=== PATIENT | male | born 1990 | race Caucasian/White ===

== ENCOUNTER 2018-06-23 16:09 | Emergency (ER) | payer OTHER ==
[2018-06-23] MEDS ORDERED: Sodium Chloride 0.9% 1,000 ML IV ONE (17:07)
--- NOTE | 2018-06-23 17:33 | C.PDOC ---
History Of Present Illness <Leo Joseph - Last Filed: 06/25/18 18:31> <EscaleraCorrie winston - Last Filed: 06/27/18 14:18> The patient is a 27 year old male, with no significant past medical history, who recently returned from [facility] around ten days ago. Patient presents to the ED for evaluation of fever, which began while he was on the plane. Patient notes symptoms were initially associated with sore throat, which persists. He also reports intermittent vomiting which began two days later. The vomitus is non-bloody/non-bilious and is not associated with eating. Otherwise, patient is able to tolerate food and fluids. He denies rash, cough, runny nose, swelling, abdominal pain, diarrhea or sick contacts. Patient does not have a regular PMD. Patient denies history of chronic illnesses or any significant family history. He admits to socially drinking, but denies smoking or drug use. (Corrie Escalera) <Leo Joseph - Last Filed: 06/25/18 18:31> History Per: Patient History/Exam Limitations: no limitations Onset/Duration Of Symptoms: Days Current Symptoms Are (Timing): Still Present Location Of Pain: Throat Sick Contacts (Context): None Associated Symptoms: Fever, Vomiting. denies: Cough, Diarrhea Additional History Per: Patient <EscaleraCorrie - Last Filed: 06/27/18 14:18> Time Seen by Provider: 06/23/18 16:56 Chief Complaint (Nursing): Flu-like Symptoms Past Medical History Reviewed: Historical Data, Nursing Documentation, Vital Signs - Medical History PMH: No Chronic Diseases Surgical History: Appendectomy Family History: States: Unknown Family Hx - Social History Hx Tobacco Use: No Hx Alcohol Use: Yes Hx Substance Use: No - Immunization History Hx Tetanus Toxoid Vaccination: No Hx Influenza Vaccination: No Hx Pneumococcal Vaccination: No <JwCorrie - Last Filed: 06/27/18 14:18> Vital Signs: Last Vital Signs Temp 98.6 F 06/23/18 20:42 Pulse 70 06/23/18 20:42 Resp 18 06/23/18 20:42 BP 115/70 06/23/18 20:42 Pulse Ox 98 06/23/18 20:42 Review Of Systems Constitutional: Positive for: Fever ENT: Negative for: Nose Discharge Respiratory: Negative for: Cough Gastrointestinal: Positive for: Vomiting. Negative for: Abdominal Pain, Diarrhea Skin: Negative for: Rash <Corrie Escalera Addy Last Filed: 06/27/18 14:18> Physical Exam - Physical Exam Appears: Non-toxic, No Acute Distress Skin: Warm, Dry Head: Atraumatic, Normacephalic Eye(s): bilateral: PERRL, EOMI Nose: No Flaring, No Discharge Oral Mucosa: Moist Throat: Erythema, No Exudate (tonsillar), No Other (tonsillar edema or hypertrophy) Neck: Trachea Midline Lymphatic: No Adenopathy Chest: Symmetrical, No Tenderness Cardiovascular: Rhythm Regular, No Murmur, Other (tachycardic) Respiratory: Normal Breath Sounds, No Accessory Muscle Use, No Rales, No Rhonchi , No Wheezing Gastrointestinal/Abdominal: Soft, No Tenderness, No Distention Back: Normal Inspection, No CVA Tenderness, No Decreased ROM Extremity: Normal ROM, No Deformity Neurological/Psych: Oriented x3, Normal Motor, Normal Sensation <Corrie Escalera Pamela - Last Filed: 06/27/18 14:18> ED Course And Treatment - Laboratory Results Result Diagrams: 06/23/18 17:33 06/23/18 17:33 <Leo Joseph - Last Filed: 06/25/18 18:31> - Laboratory Results Result Diagrams: 06/23/18 17:33 06/23/18 17:33 O2 Sat by Pulse Oximetry: 97 (on RA ) Pulse Ox Interpretation: Normal <Corrie Escalera - Last Filed: 06/27/18 14:18> Medical Decision Making <Leo Joseph - Last Filed: 06/25/18 18:31> <Corrie Escalera - Last Filed: 06/27/18 14:18> Medical Decision Making: Impression: febrile illness Differential Diagnoses include but are not limited to: * viral syndrome * malaria * urinary tract infection * strep throat * mononucleosis Plan: * bloodwork * urinalysis * CXR * Rapid Strep * Influenza A/B swab * Cottle swab * Toradol IVP * Tylenol PO * IV Fluids * reassess and disposition Progress: All reported labwork available within normal limits. Pt continues to be afebrile and in no acute distress in ER. STable for dc with PMD or [facility] followup. Advised that both urine cultures and blood cultures still pending and results will be followed by ER. (Corrie Escalera) Disposition <Leo Joseph - Last Filed: 06/25/18 18:31> - Disposition Disposition Time: 20:13 <Corrie Escalera - Last Filed: 06/27/18 14:18> - Disposition Referrals: [facility] [Outside] [facility] [Outside] Disposition: HOME/ ROUTINE Condition: STABLE Additional Instructions: STAY WELL HYDRATED FOLLOW UP WITH PMD OR [facility] IN 2-3 DAYS FOR REEVALUATION Instructions: Fever, Adult (DC) - Clinical Impression Clinical Impression: Febrile illness <Leo Joseph - Last Filed: 06/25/18 18:31> - Scribe Statement The provider has reviewed the documentation as recorded by the Scribe (Chiara De Leon) <Corrie Escalera - Last Filed: 06/27/18 14:18> - Scribe Statement Provider Attestation: All medical record entries made by the Scribe were at my direction and personally dictated by me. I have reviewed the chart and agree that the record accurately reflects my personal performance of the history, physical exam, medical decision making, and the department course for this patient. I have also personally directed, reviewed, and agree with the discharge instructions and disposition. (Corrie Escalera) Addendum <Leo Joseph - Last Filed: 06/25/18 18:31> <Corrie Escalera - Last Filed: 06/27/18 14:18> Addendum: 06/25/18 09:02 Received a call from microbiology lab stating gram positive cocci in clusters in 1 blood culture bottle. Called patient and left a voicemail. 06/25/18 18:31 Spoke with patient and explained lab results. Patient advised to return to ER and patient agreed to come back. (Leo Joseph)
[2018-06-23 17:39] LABS: BASO % 0.4 % (0.0-2.0); EOS % 0.1 % (0.0-4.0); LYMPH # 2.2 K/uL (1.0-4.3); LYMPH % 23.9 % (20.0-40.0); MEAN CELL VOLUME 84.3 fL (80.0-94.0); MEAN CORPUSCULAR HEMOGLOBIN 28.8 pg (27.0-31.0); MEAN CORPUSCULAR HGB CONC 34.2 g/dL (33.0-37.0); MEAN PLATELET VOLUME 7.9 fL (7.2-11.7); MONO % 11.1 % (0.0-10.0); NEUT # 6.1 K/uL (1.8-7.0); NEUT % 64.5 % (50.0-75.0); PLATELET COUNT 245 K/uL (130-400); RBC 4.86 Mil/uL (4.40-5.90); WHITE BLOOD COUNT 9.4 K/uL (4.8-10.8)
[2018-06-23 17:47] LABS: INR 1.2; PROTHROMBIN TIME 13.1 SECONDS (9.7-12.2); SQUAMOUS EPITHIAL < 1 /hpf (0-5); URINE BACTERIA RARE (<OCC); URINE BILIRUBIN NEGATIVE (NEGATIVE); URINE BLOOD TRACE (NEGATIVE); URINE CLARITY Clear (Clear); URINE COLOR Yellow (YELLOW); URINE GLUCOSE (UA) NORMAL (Normal); URINE LEUKOCYTE ESTERASE NEG Leu/uL (Negative); URINE PROTEIN NEGATIVE (NEGATIVE); URINE UROBILINOGEN NORMAL mg/dL (0.2-1.0)
[2018-06-23] MEDS ORDERED: Sodium Chloride 0.9% 1,000 ML ONE (17:48)
[2018-06-23 17:59] LABS: ALB/GLOB RATIO 1.5 (1.0-2.1); ALBUMIN 4.4 g/dL (3.5-5.0); ALT/SGPT 289 U/L (21-72); AST/SGOT 117 U/L (17-59); BLOOD UREA NITROGEN 17 mg/dL (9-20); CALCIUM 9.3 mg/dl (8.6-10.4); GFR NON-AFRICAN AMERICAN > 60; INFLUENZA A B NEGATIVE FOR FLU A/B (NEGATIVE); LIPASE 34 U/L (23-300)
--- NOTE | 2018-06-23 18:30 | RAD ---
HISTORY: SOB COMPARISON: None available. TECHNIQUE: Chest PA and lateral FINDINGS: LUNGS: Mild biapical pleural thickening. No focal consolidation. Please note that chest x-ray has limited sensitivity for the detection of pulmonary masses. PLEURA: No significant pleural effusion identified. No definite pneumothorax . CARDIOVASCULAR: The cardiomediastinal silhouette appears within normal limits of size. OSSEOUS STRUCTURES: No acute osseous abnormality identified. VISUALIZED UPPER ABDOMEN: Unremarkable. OTHER FINDINGS: None. IMPRESSION: No acute findings identified. See above.
[2018-06-23 19:19] VITALS: RESP 18
[2018-06-23 19:35] LABS: INTRACELLULAR PARASITE NEGATIVE (NEGATIVE)
[2018-06-23 20:05] LABS: ERYTHROCYTE SEDIMENTATION RATE 7 mm/hr (0-15)
[2018-06-23 20:43] VITALS: BP 115/70; PULSE 70; TEMP 98.6
[2018-06-27 14:14] VITALS: O2SAT 97
== END 2018-06-23 21:19 | disposition home or self-care (01) ==
LOC: C.ER 16:09
DX: R50.9 Fever, unspecified (principal)
CPT/HCPCS: 71046; 80053; 81001; 83605; 83690; 83735; 85025; 85610; 85651; 85730; 86308; 87040; 87070; 87086; 87149; 87181; 87207; 87430; 87804; 96361; 96374; 99284; J1885; J7030

== ENCOUNTER 2018-06-25 19:05 | Observation (INO) | payer OTHER ==
[2018-06-25] MEDS ORDERED: Sodium Chloride 0.9% 1,000 ML IV ONE (20:38)
[2018-06-25 20:55] LABS: VENOUS BLOOD GAS BASE EXCESS 2.9 mmol/L (0.0-2.0); VENOUS BLOOD GAS PCO2 54 mmHg (40-60); VENOUS BLOOD GAS PO2 30 mm/Hg (30-55); VENOUS BLOOD PH 7.35 (7.32-7.43)
[2018-06-25 20:56] LABS: BASO % 0.3 % (0.0-2.0); EOS # 0.1 K/uL (0.0-0.7); EOS % 1.4 % (0.0-4.0); HEMOGLOBIN 15.2 g/dL (12.0-18.0); LYMPH # 3.4 K/uL (1.0-4.3); LYMPH % 48.6 % (20.0-40.0); MEAN CELL VOLUME 85.1 fL (80.0-94.0); MEAN PLATELET VOLUME 8.1 fL (7.2-11.7); MONO # 0.6 K/uL (0.0-0.8); MONO % 8.4 % (0.0-10.0); NEUT # 2.9 K/uL (1.8-7.0); NEUT % 41.3 % (50.0-75.0); NRBC % 0.1 % (0.0-2.0); RBC 5.24 Mil/uL (4.40-5.90); RED CELL DISTRIBUTION WIDTH 12.9 % (11.5-14.5)
[2018-06-25] MEDS ORDERED: Sodium Chloride 0.9% 1,000 ML ONE (20:56)
[2018-06-25 21:15] LABS: ALB/GLOB RATIO 1.4 (1.0-2.1); ALBUMIN 4.6 g/dL (3.5-5.0); ALT/SGPT 464 U/L (21-72); AST/SGOT 219 U/L (17-59); BLOOD UREA NITROGEN 12 mg/dL (9-20); CALCIUM 9.5 mg/dl (8.6-10.4); GFR NON-AFRICAN AMERICAN > 60
[2018-06-25 21:31] LABS: URINE BILIRUBIN NEGATIVE (NEGATIVE); URINE BLOOD NEGATIVE (NEGATIVE); URINE CLARITY Clear (Clear); URINE COLOR Yellow (YELLOW); URINE GLUCOSE (UA) NORMAL (Normal); URINE LEUKOCYTE ESTERASE NEG Leu/uL (Negative); URINE PROTEIN NEGATIVE (NEGATIVE); URINE UROBILINOGEN NORMAL mg/dL (0.2-1.0)
[2018-06-25] MEDS ORDERED: Iodixanol 320 mg/ml 150 ml Bottle IV ONE (21:31)
[2018-06-25] MEDS ORDERED: metroNIDAZOLE IV 500 mg/100 ml 500 MG/100 ML BAG IVPB STA (23:35)
[2018-06-25] MEDS ORDERED: Ciprofloxacin 400mg/200ml D5W 400 MG/200 ML BAG IVPB STA (23:35)
[2018-06-25] MEDS ORDERED: Ciprofloxacin 400mg/200ml D5W 400 MG/200 ML BAG IVPB ONE (23:42)
[2018-06-25] MEDS ORDERED: metroNIDAZOLE IV 500 mg/100 ml 500 MG/100 ML BAG ONE (23:42)
--- NOTE | 2018-06-25 23:43 | C.PDOC ---
History Of Present Illness 27 year old male presents to the ED complaining of diarrhea and vomiting since last night. Patient was called to the ER for positive blood culture test. He denies any fever, hematuria, or dysuria but admits to decreased appetite. He states he came back from [facility] a few weeks ago and notes he was not ill during his trip or in the plane. Time Seen by Provider: 06/25/18 20:56 Chief Complaint (Nursing): Medical Clearance History Per: Patient History/Exam Limitations: no limitations Onset/Duration Of Symptoms: Days Current Symptoms Are (Timing): Still Present Severity: Moderate Recent travel outside of the [place] States: Yes ([facility]) Past Medical History Reviewed: Historical Data, Nursing Documentation, Vital Signs Vital Signs: Last Vital Signs Temp 98.2 F 06/25/18 19:20 Pulse 77 06/25/18 22:24 Resp 14 06/25/18 22:24 BP 126/71 06/25/18 22:24 Pulse Ox 100 06/25/18 23:46 - Medical History PMH: No Chronic Diseases Surgical History: Appendectomy Family History: States: No Known Family Hx - Social History Hx Tobacco Use: No Hx Alcohol Use: Yes Hx Substance Use: No - Immunization History Hx Tetanus Toxoid Vaccination: Yes Hx Influenza Vaccination: No Hx Pneumococcal Vaccination: No Review Of Systems Except As Marked, All Systems Reviewed And Found Negative. Constitutional: Negative for: Fever, Chills Gastrointestinal: Positive for: Vomiting, Diarrhea Genitourinary: Negative for: Dysuria, Hematuria Physical Exam - Physical Exam Appears: Non-toxic Skin: Warm, Dry Head: Normacephalic Eye(s): bilateral: Normal Inspection Nose: Normal Oral Mucosa: Moist Neck: Normal ROM Chest: Symmetrical Cardiovascular: Rhythm Regular Respiratory: Normal Breath Sounds Gastrointestinal/Abdominal: Tenderness (Left sided abdominal tenderness) Extremity: Normal ROM Neurological/Psych: Oriented x3, Normal Speech Gait: Steady ED Course And Treatment - Laboratory Results Result Diagrams: 06/25/18 20:52 06/25/18 20:52 O2 Sat by Pulse Oximetry: 100 (RA) Pulse Ox Interpretation: Normal Medical Decision Making Medical Decision Making: Orders: - CT ABD/PEL - Ciproflaxacin - Flagyl - Fluids - Labwork Disposition - Disposition Disposition Time: 23:30 Condition: STABLE Forms: [employer]ire (Hebrew) - Clinical Impression Clinical Impression: Enteritis, Positive blood culture - Scribe Statement The provider has reviewed the documentation as recorded by the Scribe Fatuma Wayne All medical record entries made by the Raheemibe were at my direction and personally dictated by me. I have reviewed the chart and agree that the record accurately reflects my personal performance of the history, physical exam, medical decision making, and the department course for this patient. I have also personally directed, reviewed, and agree with the discharge instructions and disposition.
[2018-06-26] MEDS: metroNIDAZOLE IV 500 mg/100 ml 500 MG/100 ML BAG IVPB SCH ×3 (06:31→21:32)
--- NOTE | 2018-06-26 09:09 | CT ---
Date of service: 06/25/2018 PROCEDURE: CT Abdomen and Pelvis with contrast HISTORY: left-sided abd tenderness COMPARISON: None. TECHNIQUE: Contrast dose: 100 mL Visipaque 320 Radiation dose: Total exam DLP = 279.2 mGy-cm. This CT exam was performed using one or more of the following dose reduction techniques: Automated exposure control, adjustment of the mA and/or kV according to patient size, and/or use of iterative reconstruction technique. FINDINGS: LOWER THORAX: Unremarkable. LIVER: Diffuse hepatic steatosis. No gross lesion or ductal dilatation. GALLBLADDER AND BILE DUCTS: Unremarkable. PANCREAS: Unremarkable. No gross lesion or ductal dilatation. SPLEEN: Unremarkable. ADRENALS: Unremarkable. No mass. KIDNEYS AND URETERS: Unremarkable. No hydronephrosis. No solid mass. VASCULATURE: Unremarkable. No aortic aneurysm. BOWEL: Unremarkable. No obstruction. No gross mural thickening. APPENDIX: Normal appendix. PERITONEUM: Unremarkable. No free fluid. No free air. LYMPH NODES: Unremarkable. No enlarged lymph nodes. BLADDER: Unremarkable. REPRODUCTIVE: Unremarkable. BONES: No acute fracture. OTHER FINDINGS: None. IMPRESSION: No acute abdominal pelvic pathology.
[2018-06-26] MEDS: Enoxaparin 40 mg Syringe SC SCH (10:11)
[2018-06-26] MEDS: Pantoprazole 40 mg EC Tab PO SCH (10:11)
[2018-06-26] MEDS: Ciprofloxacin 400mg/200ml D5W 400 MG/200 ML BAG IVPB SCH (11:10)
--- NOTE | 2018-06-26 14:15 | CP.PCM.HP ---
History of Present Illness - History of Present Illness History of Present Illness: 27-year-old male patient comes to the ED complaining of diarrhea and vomiting which has been ongoing since last night. Patient was called to the ER after his blood culture test came out to be positive. Patient denies any fever, hematuria or dysuria but admits that his appetite is decreased. Patient came back from [place] ago, but says that he was not unwell during the trip or in the plane. Present on Admission - Present on Admission Any Indicators Present on Admission: No Past Patient History - Past Social History Smoking Status: Never Smoked - PSYCHIATRIC Hx Substance Use: No - SURGICAL HISTORY Hx Appendectomy: Yes - ANESTHESIA Hx Anesthesia: Yes Hx Anesthesia Reactions: No Meds Allergies/Adverse Reactions: Allergies Allergy/AdvReac Type Severity Reaction Status Date / Time No Known Allergies Allergy Verified 06/25/18 19:24 Physical Exam - Constitutional Appears: Well - Head Exam Head Exam: ATRAUMATIC, NORMAL INSPECTION, NORMOCEPHALIC - Eye Exam Eye Exam: EOMI, Normal appearance, PERRL Pupil Exam: NORMAL ACCOMODATION, PERRL - ENT Exam ENT Exam: Mucous Membranes Moist, Normal Exam - Neck Exam Neck exam: Positive for: Normal Inspection - Respiratory Exam Respiratory Exam: Decreased Breath Sounds - Cardiovascular Exam Cardiovascular Exam: REGULAR RHYTHM, +S1, +S2 - GI/Abdominal Exam GI & Abdominal Exam: Diminished Bowel Sounds, Soft - Rectal Exam Rectal Exam: Deferred Results - Vital Signs Recent Vital Signs: Last Vital Signs Temp 97.7 F 06/26/18 09:56 Pulse 83 06/26/18 09:56 Resp 20 06/26/18 09:56 BP 107/71 06/26/18 09:56 Pulse Ox 98 06/26/18 13:44 - Labs Result Diagrams: 06/27/18 11:38 06/27/18 11:38 Labs: Laboratory Results - last 24 hr 06/25/18 06/25/18 06/25/18 20:50 20:52 20:52 WBC 7.0 RBC 5.24 Hgb 15.2 Hct 44.6 MCV 85.1 MCH 29.0 MCHC 34.0 RDW 12.9 Plt Count 304 MPV 8.1 Neut % (Auto) 41.3 L Lymph % (Auto) 48.6 H [place] % (Auto) 8.4 Eos % (Auto) 1.4 Baso % (Auto) 0.3 Neut # (Auto) 2.9 Lymph # (Auto) 3.4 [place] # (Auto) 0.6 Eos # (Auto) 0.1 Baso # (Auto) 0.0 pO2 30 VBG pH 7.35 VBG pCO2 54 VBG HCO3 26.0 VBG Total CO2 31.5 H VBG O2 Sat (Calc) 58.9 VBG Base Excess 2.9 H VBG Potassium 3.5 L Sodium 139.0 142 Chloride 104.0 99 Glucose 78 Lactate 0.7 FiO2 21.0 Potassium 3.8 Carbon Dioxide 30 Anion Gap 16 BUN 12 Creatinine 0.9 Est GFR ( Amer) > 60 Est GFR (Non-Af Amer) > 60 Random Glucose 85 Calcium 9.5 Total Bilirubin 0.8 AST 219 H D ALT 464 H D Alkaline Phosphatase 62 Total Protein 8.0 Albumin 4.6 Globulin 3.4 Albumin/Globulin Ratio 1.4 Venous Blood Potassium 3.5 L Urine Color Urine Clarity Urine pH Ur Specific [place] Urine Protein Urine Glucose (UA) Urine Ketones Urine Blood Urine Nitrate Urine Bilirubin Urine Urobilinogen Ur Leukocyte Esterase Urine WBC (Auto) Urine RBC (Auto) 06/25/18 21:25 WBC RBC Hgb Hct MCV MCH MCHC RDW Plt Count MPV Neut % (Auto) Lymph % (Auto) [place] % (Auto) Eos % (Auto) Baso % (Auto) Neut # (Auto) Lymph # (Auto) [place] # (Auto) Eos # (Auto) Baso # (Auto) pO2 VBG pH VBG pCO2 VBG HCO3 VBG Total CO2 VBG O2 Sat (Calc) VBG Base Excess VBG Potassium Sodium Chloride Glucose Lactate FiO2 Potassium Carbon Dioxide Anion Gap BUN Creatinine Est GFR ( Amer) Est GFR (Non-Af Amer) Random Glucose Calcium Total Bilirubin AST ALT Alkaline Phosphatase Total Protein Albumin Globulin Albumin/Globulin Ratio Venous Blood Potassium Urine Color Yellow Urine Clarity Clear Urine pH 6.0 Ur Specific [place] 1.014 Urine Protein Negative Urine Glucose (UA) Normal Urine Ketones Negative Urine Blood Negative Urine Nitrate Negative Urine Bilirubin Negative Urine Urobilinogen Normal Ur Leukocyte Esterase Neg Urine WBC (Auto) 1 Urine RBC (Auto) 1 Assessment & Plan - Assessment and Plan (Free Text) Plan: Cipro Continue metronidazole Dr. Can IV fluid Protonix Lovenox As ordered
--- NOTE | 2018-06-26 15:04 | CP.PCM.CON ---
History of Present Illness - History of Present Illness History of Present Illness: 27 year old male presents to the ED complaining of diarrhea and vomiting since last night. Patient was called to the ER for positive blood culture test. He denies any fever, hematuria, or dysuria but admits to decreased appetite. He states he came back from [facility] a few weeks ago and notes he was not ill during his trip or in the plane. - Medical History PMH: No Chronic Diseases Surgical History: Appendectomy Family History: States: No Known Family Hx Review of Systems - Constitutional Constitutional: As Per HPI - EENT Eyes: absent: As Per HPI, Blind Spots, Blurred Vision, Change in Vision, Decreased Night Vision, Diplopia, Discharge, Dry Eye, Exophthalmos, Floaters, Irritation, Itchy Eyes, Loss of Peripheral Vision, Pain, Photophobia, Requires Corrective Lenses, Sees Flashes, Spots in Vision, Tunnel Vision, Other Visual Disturbances, Loss of Vision, Other Ears: absent: As Per HPI, Decreased Hearing, Ear Discharge, Ear Pain, Tinnitus, Abnormal Hearing, Disequilibrium, Dizziness, Other Nose/Mouth/Throat: absent: As Per HPI, Epistaxis, Nasal Congestion, Nasal Discharge, Nasal Obstruction, Nasal Trauma, Nose Pain, Post Nasal Drip, Sinus Pain, Sinus Pressure, Bleeding Gums, Change in Voice, Dental Pain, Dry Mouth, Dysphagia, Halitosis, Hoarsness, Lip Swelling, Mouth Lesions, Mouth Pain, Odynophagia, Sore Throat, Throat Swelling, Tongue Swelling, Facial Pain, Neck Pain, Neck Mass, Other - Cardiovascular Cardiovascular: absent: As Per HPI, Acrocyanosis, Chest Pain, Chest Pain at Rest , Chest Pain with Activity, Claudication, Diaphoresis, Dyspnea, Dyspnea on Exertion, Edema, Irregular Heart Rhythm, Pain Radiating to Arm/Neck/Jaw, Leg Edema, Leg Ulcers, Lightheadedness, Orthopnea, Palpitations, Paroxysmal Nocturnal Dyspnea, Pedal Edema, Radiating Pain, Rapid Heart Rate, Slow Heart Rate, Syncope, Other - Respiratory Respiratory: absent: As Per HPI, Cough, Dyspnea, Hemoptysis, Dyspnea on Exertion , Wheezing, Snoring, Stridor, Pain on Inspiration, Chest Congestion, Excessive Mucous Production, Change in Mucous Color, Pain with Coughing, Other - Gastrointestinal Gastrointestinal: As Per HPI - Genitourinary Genitourinary: absent: As Per HPI, Change in Urinary Stream, Difficulty Urinating, Dysuria, Flank Pain, Hematuria, Pyuria, Nocturia, Urinary Incontinence, Urinary Frequency, Urinary Hesitance, Urinary Urgency, Voiding Freq/Small Amts, Freq UTI, Hx Renal/Bladder Calculi, Hx /Renal Surgery, Bladder Distension, Other - Musculoskeletal Musculoskeletal: absent: As Per HPI, Abnormal Gait, Arthralgias, Atrophy, Back Pain, Deformity, Joint Swelling, Limited Range of Motion, Loss of Height, Muscle Cramps, Muscle Weakness, Myalgias, Neck Pain, Numbness, Radiating Pain into Limb, Stiffness, Tingling, Other - Integumentary Integumentary: absent: As Per HPI, Acne, Alopecia, Bleeding Lesions, Change in Hair, Change in Nails, Change in Pigmentation, Changing Lesions, Dry Skin, Erythema, Furuncle, Hirsutism, Lesions, New Lesions, Non-Healing Lesions, Photosensitivity, Pruritus, Rash, Skin Pain, Skin Ulcer, Sores, Striae, Swelling , Unusual Bruising, Wounds, Jaundice, Other - Neurological Neurological: absent: As Per HPI, Abnormal Gait, Abnormal Hearing, Abnormal Movements, Abnormal Speech, Behavioral Changes, Burning Sensations, Confusion, Convulsions, Disequilibrium, Dizziness, Numbness, Focal Weakness, Frequent Falls , Headaches, Lack of Coordination, Loss of Vision, Memory Loss, Paresthesias, Radicular Pain, Restless Legs, Sensory Deficit, Syncope, Tingling, Tremor, Vertigo, Weakness, Other Visual Disturbances, Other - Psychiatric Psychiatric: absent: As Per HPI, Abnormal Sleep Pattern, Anhedonia, Anxiety, Auditory Hallucinations, Behavioral Changes, Change in Appetite, Change in Libido, Confusion, Depression, Difficulty Concentrating, Hallucinations, Homicidal Ideation, Hopelessness, Irritability, Memory Loss, Mood Swings, Panic Attacks, Paranoia, Suicidal Ideation, Visual Hallucinations, Tactile Hallucinations, Other - Endocrine Endocrine: absent: As Per HPI, Change in Body Appearance, Change in Libido, Cold Intolorance, Deepening of Voice, Excessive Sweating, Fatigue, Flushing, Heat Intolorance, Increase in Ring/Shoe/Hat Size, Palpitations, Polydipsia, Polyphagia, Polyuria, Other - Hematologic/Lymphatic Hematologic: absent: As Per HPI, Easy Bleeding, Easy Bruising, Lymphadenopathy, Other Past Patient History - Past Social History Smoking Status: Never Smoked - PSYCHIATRIC Hx Substance Use: No - SURGICAL HISTORY Hx Appendectomy: Yes - ANESTHESIA Hx Anesthesia: Yes Hx Anesthesia Reactions: No Meds Allergies/Adverse Reactions: Allergies Allergy/AdvReac Type Severity Reaction Status Date / Time No Known Allergies Allergy Verified 06/25/18 19:24 - Medications Medications: Current Medications Enoxaparin Sodium (Lovenox) 40 mg SC DAILY [facility] Last Admin: 06/26/18 10:11 Dose: 40 mg Ciprofloxacin (Cipro 400mg/200ml Dsw) 400 mg in 200 mls @ 133 mls/hr IVPB Q12H JORGE LUIS PRN Reason: Protocol Last Admin: 06/26/18 11:10 Dose: 133 mls/hr Metronidazole (Flagyl) 500 mg in 100 mls @ 100 mls/hr IVPB Q8H JORGE LUIS PRN Reason: Protocol Last Admin: 06/26/18 14:21 Dose: 100 mls/hr Pantoprazole Sodium (Protonix Ec Tab) 40 mg PO DAILY [facility] Last Admin: 06/26/18 10:11 Dose: 40 mg Physical Exam - Constitutional Appears: Non-toxic, Chronically Ill - Head Exam Head Exam: NORMOCEPHALIC - Eye Exam Eye Exam: PERRL. absent: Scleral icterus - ENT Exam ENT Exam: Mucous Membranes Dry, Normal External Ear Exam - Neck Exam Neck exam: Negative for: Lymphadenopathy - Respiratory Exam Respiratory Exam: Decreased Breath Sounds, Clear to Auscultation Bilateral - Cardiovascular Exam Cardiovascular Exam: REGULAR RHYTHM, +S1, +S2 - GI/Abdominal Exam GI & Abdominal Exam: Diminished Bowel Sounds, Soft. absent: Tenderness - Rectal Exam Rectal Exam: Deferred - Exam Exam: NORMAL INSPECTION - Extremities Exam Extremities exam: Negative for: pedal edema - Back Exam Back exam: absent: CVA tenderness (L), CVA tenderness (R) - Neurological Exam Neurological exam: Alert, CN II-XII Intact, Oriented x3, Reflexes Normal - Psychiatric Exam Psychiatric exam: Normal Mood - Skin Skin Exam: Dry Results - Vital Signs Recent Vital Signs: Last Vital Signs Temp 97.7 F 06/26/18 09:56 Pulse 83 06/26/18 09:56 Resp 20 06/26/18 09:56 BP 107/71 06/26/18 09:56 Pulse Ox 98 06/26/18 13:44 - Labs Result Diagrams: 06/25/18 20:52 06/25/18 20:52 Labs: Laboratory Results - last 24 hr 06/25/18 06/25/18 06/25/18 20:50 20:52 20:52 WBC 7.0 RBC 5.24 Hgb 15.2 Hct 44.6 MCV 85.1 MCH 29.0 MCHC 34.0 RDW 12.9 Plt Count 304 MPV 8.1 Neut % (Auto) 41.3 L Lymph % (Auto) 48.6 H [place] % (Auto) 8.4 Eos % (Auto) 1.4 Baso % (Auto) 0.3 Neut # (Auto) 2.9 Lymph # (Auto) 3.4 [place] # (Auto) 0.6 Eos # (Auto) 0.1 Baso # (Auto) 0.0 pO2 30 VBG pH 7.35 VBG pCO2 54 VBG HCO3 26.0 VBG Total CO2 31.5 H VBG O2 Sat (Calc) 58.9 VBG Base Excess 2.9 H VBG Potassium 3.5 L Sodium 139.0 142 Chloride 104.0 99 Glucose 78 Lactate 0.7 FiO2 21.0 Potassium 3.8 Carbon Dioxide 30 Anion Gap 16 BUN 12 Creatinine 0.9 Est GFR ( Amer) > 60 Est GFR (Non-Af Amer) > 60 Random Glucose 85 Calcium 9.5 Total Bilirubin 0.8 AST 219 H D ALT 464 H D Alkaline Phosphatase 62 Total Protein 8.0 Albumin 4.6 Globulin 3.4 Albumin/Globulin Ratio 1.4 Venous Blood Potassium 3.5 L Urine Color Urine Clarity Urine pH Ur Specific [place] Urine Protein Urine Glucose (UA) Urine Ketones Urine Blood Urine Nitrate Urine Bilirubin Urine Urobilinogen Ur Leukocyte Esterase Urine WBC (Auto) Urine RBC (Auto) 06/25/18 21:25 WBC RBC Hgb Hct MCV MCH MCHC RDW Plt Count MPV Neut % (Auto) Lymph % (Auto) [place] % (Auto) Eos % (Auto) Baso % (Auto) Neut # (Auto) Lymph # (Auto) [place] # (Auto) Eos # (Auto) Baso # (Auto) pO2 VBG pH VBG pCO2 VBG HCO3 VBG Total CO2 VBG O2 Sat (Calc) VBG Base Excess VBG Potassium Sodium Chloride Glucose Lactate FiO2 Potassium Carbon Dioxide Anion Gap BUN Creatinine Est GFR ( Amer) Est GFR (Non-Af Amer) Random Glucose Calcium Total Bilirubin AST ALT Alkaline Phosphatase Total Protein Albumin Globulin Albumin/Globulin Ratio Venous Blood Potassium Urine Color Yellow Urine Clarity Clear Urine pH 6.0 Ur Specific [place] 1.014 Urine Protein Negative Urine Glucose (UA) Normal Urine Ketones Negative Urine Blood Negative Urine Nitrate Negative Urine Bilirubin Negative Urine Urobilinogen Normal Ur Leukocyte Esterase Neg Urine WBC (Auto) 1 Urine RBC (Auto) 1 Assessment & Plan (1) Enteritis Status: Acute (2) Positive blood culture Status: Acute - Assessment and Plan (Free Text) Assessment: blood c/s likely not related to cause of enteritis await stool c/s cont rx as per Dr De Leon
[2018-06-27] MEDS: Ciprofloxacin 400mg/200ml D5W 400 MG/200 ML BAG IVPB SCH ×2 (00:45→11:37)
[2018-06-27 01:33] VITALS: RESP 20
[2018-06-27] MEDS: metroNIDAZOLE IV 500 mg/100 ml 500 MG/100 ML BAG IVPB SCH ×2 (06:46→13:33)
[2018-06-27 08:02] VITALS: BP 107/69; PULSE 71; TEMP 98; O2SAT 100
[2018-06-27 09:12] LABS: HEPATITIS B SURFACE AG Negative (NEGATIVE)
[2018-06-27 09:18] LABS: HEPATITIS A IGM NEGATIVE (NEGATIVE); HEPATITIS B CORE AB NEGATIVE (NEGATIVE)
[2018-06-27] MEDS: Enoxaparin 40 mg Syringe SC SCH (09:27)
[2018-06-27] MEDS: Pantoprazole 40 mg EC Tab PO SCH (09:27)
[2018-06-27 09:30] LABS: HEPATITIS C ANTIBODY NEGATIVE (NEGATIVE)
--- NOTE | 2018-06-27 11:51 | CP.PCM.PN ---
Subjective - Date & Time of Evaluation Date of Evaluation: 06/27/18 Time of Evaluation: 07:00 - Subjective Subjective: improving hep serology neg will repeat LFT's Objective - Vital Signs/Intake and Output Vital Signs (last 24 hours): Temp Pulse Resp BP Pulse Ox 98.0 F 71 20 107/69 100 06/27/18 07:01 06/27/18 07:01 06/27/18 07:01 06/27/18 07:01 06/27/18 07:39 Intake and Output: 06/27/18 06/27/18 06:59 18:59 Intake Total 200 Balance 200 - Medications Medications: Current Medications Enoxaparin Sodium (Lovenox) 40 mg SC DAILY [facility] Last Admin: 06/27/18 09:27 Dose: Not Given Ciprofloxacin (Cipro 400mg/200ml Dsw) 400 mg in 200 mls @ 133 mls/hr IVPB Q12H [facility] PRN Reason: Protocol Last Admin: 06/27/18 11:37 Dose: 133 mls/hr Metronidazole (Flagyl) 500 mg in 100 mls @ 100 mls/hr IVPB Q8H [facility] PRN Reason: Protocol Last Admin: 06/27/18 06:46 Dose: 100 mls/hr Pantoprazole Sodium (Protonix Ec Tab) 40 mg PO DAILY [facility] Last Admin: 06/27/18 09:27 Dose: 40 mg - Labs Labs: 06/25/18 20:52 06/25/18 20:52 - Constitutional Appears: Non-toxic, Chronically Ill - Head Exam Head Exam: NORMOCEPHALIC - Eye Exam Eye Exam: absent: Scleral icterus - ENT Exam ENT Exam: Mucous Membranes Dry - Neck Exam Neck Exam: absent: Lymphadenopathy - Respiratory Exam Respiratory Exam: Decreased Breath Sounds - Cardiovascular Exam Cardiovascular Exam: REGULAR RHYTHM - GI/Abdominal Exam GI & Abdominal Exam: Soft. absent: Tenderness Assessment and Plan (1) Enteritis Status: Acute (2) Positive blood culture Status: Acute
[2018-06-27 11:54] LABS: BASO # 0.1 K/uL (0.0-0.2); BASO % 0.8 % (0.0-2.0); EOS # 0.1 K/uL (0.0-0.7); EOS % 0.9 % (0.0-4.0); HEMOGLOBIN 15.9 g/dL (12.0-18.0); LYMPH # 2.9 K/uL (1.0-4.3); LYMPH % 36.3 % (20.0-40.0); MEAN CELL VOLUME 85.4 fL (80.0-94.0); MEAN CORPUSCULAR HEMOGLOBIN 29.7 pg (27.0-31.0); MEAN CORPUSCULAR HGB CONC 34.8 g/dL (33.0-37.0); MONO # 0.6 K/uL (0.0-0.8); NEUT # 4.3 K/uL (1.8-7.0); RBC 5.35 Mil/uL (4.40-5.90); RED CELL DISTRIBUTION WIDTH 13.1 % (11.5-14.5)
[2018-06-27 12:24] LABS: ALB/GLOB RATIO 1.3 (1.0-2.1); ALBUMIN 4.8 g/dL (3.5-5.0); ALT/SGPT 485 U/L (21-72); AST/SGOT 209 U/L (17-59); BLOOD UREA NITROGEN 12 mg/dL (9-20); CALCIUM 9.9 mg/dl (8.6-10.4); GFR NON-AFRICAN AMERICAN > 60
[2018-06-27 12:31] LABS: BILIRUBIN,DIRECT 0.4 mg/dL (0.0-0.4)
--- NOTE | 2018-06-27 14:03 | CP.PCM.CON ---
<Divya Noriega - Last Filed: 06/27/18 14:03> History of Present Illness - History of Present Illness History of Present Illness: Gastroenterology Fellow/PGY6 Consult Note 27 year old male with no PMH presenting after stating he was contacted due to positive blood culture. Patient notes ER presentation on 06/23 for subjective fever with no acute pathology and discharged home. Patient was found to staph coagulase negative in one blood culture and requested to return to the ER for further workup. On evaluation today, he states returned trip to [place] for one month for his wedding with almost daily alcohol intake during celebrations He returned on 06/14 and noted subjective fever leading to daily 2-3 pills of Advil, Ibuprofen, and/or tylenol every six hours from 06/14 to 06/23. Since yesterday, he notes resolved subjective fever, tolerating regular diet, and having daily formed stools. Denies nausea, vomiting, abdominal pain/distension, diarrhea, melena, hematochezia, or unintentional weight loss. No prior EGD or colonoscopy. Family History- denies liver disease, cirrhosis Social History- social alcohol use, denies tobacco/illicit drug use Surgical History- appendectomy Review of Systems - Review of Systems Review of Systems: 12-point review of systems negative except for as above Past Patient History - Past Social History Smoking Status: Never Smoked - PSYCHIATRIC Hx Substance Use: No - SURGICAL HISTORY Hx Appendectomy: Yes - ANESTHESIA Hx Anesthesia: Yes Hx Anesthesia Reactions: No Meds Allergies/Adverse Reactions: Allergies Allergy/AdvReac Type Severity Reaction Status Date / Time No Known Allergies Allergy Verified 06/25/18 19:24 - Medications Medications: Current Medications Enoxaparin Sodium (Lovenox) [address] [facility] Last Admin: 06/27/18 09:27 Dose: Not Given Ciprofloxacin (Cipro 400mg/200ml Dsw) 400 mg in 200 mls @ 133 mls/hr IVPB Q12H [facility] PRN Reason: Protocol Last Admin: 06/27/18 11:37 Dose: 133 mls/hr Metronidazole (Flagyl) 500 mg in 100 mls @ 100 mls/hr IVPB Q8H [facility] PRN Reason: Protocol Last Admin: 06/27/18 13:33 Dose: Not Given Pantoprazole Sodium (Protonix Ec Tab) 40 mg PO DAILY [facility] Last Admin: 06/27/18 09:27 Dose: 40 mg Physical Exam - Constitutional Appears: Non-toxic, No Acute Distress - Head Exam Head Exam: ATRAUMATIC, NORMOCEPHALIC - Eye Exam Eye Exam: EOMI, PERRL. absent: Scleral icterus Pupil Exam: PERRL. absent: Miosis, Mydriatic - ENT Exam ENT Exam: Mucous Membranes Moist, Normal Oropharynx - Neck Exam Neck exam: Positive for: Full Rom, Normal Inspection - Respiratory Exam Respiratory Exam: Clear to Auscultation Bilateral. absent: Rales, Rhonchi, Wheezes - Cardiovascular Exam Cardiovascular Exam: RRR, +S1, +S2. absent: Gallop, Rubs - GI/Abdominal Exam GI & Abdominal Exam: Normal Bowel Sounds, Soft. absent: Distended, Firm, Guarding, Organomegaly, Rebound, Rigid, Tenderness - Extremities Exam Extremities exam: Positive for: normal inspection. Negative for: pedal edema - Neurological Exam Neurological exam: Alert, Oriented x3 - Psychiatric Exam Psychiatric exam: Normal Affect, Normal Mood - Skin Skin Exam: Dry, Intact, Normal Color, Warm Results - Vital Signs Recent Vital Signs: Last Vital Signs Temp 98.0 F 06/27/18 07:01 Pulse 71 06/27/18 07:01 Resp 20 06/27/18 07:01 BP 107/69 06/27/18 07:01 Pulse Ox 100 06/27/18 11:24 - Labs Result Diagrams: 06/27/18 11:38 06/27/18 11:38 Labs: Laboratory Results - last 24 hr 06/26/18 06/26/18 06/27/18 17:13 17:13 11:38 WBC 8.0 RBC 5.35 Hgb 15.9 Hct 45.6 MCV 85.4 MCH 29.7 MCHC 34.8 RDW 13.1 Plt Count 353 MPV 8.0 Neut % (Auto) 54.0 Lymph % (Auto) 36.3 [place] % (Auto) 8.0 Eos % (Auto) 0.9 Baso % (Auto) 0.8 Neut # (Auto) 4.3 Lymph # (Auto) 2.9 [place] # (Auto) 0.6 Eos # (Auto) 0.1 Baso # (Auto) 0.1 Sodium Potassium Chloride Carbon Dioxide Anion Gap BUN Creatinine Est GFR ( Amer) Est GFR (Non-Af Amer) Random Glucose Calcium Total Bilirubin Direct Bilirubin AST ALT Alkaline Phosphatase Total Protein Albumin Globulin Albumin/Globulin Ratio Hepatitis A IgM Ab Negative Hep Bs Antigen Negative Hep B Core IgM Ab Negative Hepatitis C Antibody Negative HIV 1&2 Antibody Screen Negative 06/27/18 11:38 WBC RBC Hgb Hct MCV MCH MCHC RDW Plt Count MPV Neut % (Auto) Lymph % (Auto) [place] % (Auto) Eos % (Auto) Baso % (Auto) Neut # (Auto) Lymph # (Auto) [place] # (Auto) Eos # (Auto) Baso # (Auto) Sodium 141 Potassium 4.2 Chloride 97 L Carbon Dioxide 31 H Anion Gap 16 BUN 12 Creatinine 1.0 Est GFR ( Amer) > 60 Est GFR (Non-Af Amer) > 60 Random Glucose 87 Calcium 9.9 Total Bilirubin 0.8 Direct Bilirubin 0.4 AST 209 H ALT 485 H Alkaline Phosphatase 61 Total Protein 8.3 Albumin 4.8 Globulin 3.6 Albumin/Globulin Ratio 1.3 Hepatitis A IgM Ab Hep Bs Antigen Hep B Core IgM Ab Hepatitis C Antibody HIV 1&2 Antibody Screen Assessment & Plan - Assessment and Plan (Free Text) Assessment: 27 year old male with no PMH presenting for positive blood culture after ER visit 06/23/18 for subjective fever. Active treatment of likely resolving viral process with GI consultation for elevated transaminases. No prior EGD or colonoscopy. Plan: -elevated AST, ALT likely 2/2 recent heavy alcohol use for one month with cessation one week ago -ALT: AST 2:1 -negative hepatitis panel -CT A/P IV contrast- hepatic steatosis, normal biliary system, no acute pathology -counselled on alcohol cessation -tolerating diet -no indication for antibiotics from GI standpoint -likely resolved viral illness with subjective fever -recheck LFTs in next 2-4 weeks with PCP <Brian Vincent - Last Filed: 06/27/18 14:40> Results - Vital Signs Recent Vital Signs: Last Vital Signs Temp 98.0 F 06/27/18 07:01 Pulse 71 06/27/18 07:01 Resp 20 06/27/18 07:01 BP 107/69 06/27/18 07:01 Pulse Ox 100 06/27/18 11:24 - Labs Result Diagrams: 06/27/18 11:38 06/27/18 11:38 Labs: Laboratory Results - last 24 hr 06/26/18 06/26/18 06/27/18 17:13 17:13 11:38 WBC 8.0 RBC 5.35 Hgb 15.9 Hct 45.6 MCV 85.4 MCH 29.7 MCHC 34.8 RDW 13.1 Plt Count 353 MPV 8.0 Neut % (Auto) 54.0 Lymph % (Auto) 36.3 [place] % (Auto) 8.0 Eos % (Auto) 0.9 Baso % (Auto) 0.8 Neut # (Auto) 4.3 Lymph # (Auto) 2.9 [place] # (Auto) 0.6 Eos # (Auto) 0.1 Baso # (Auto) 0.1 Sodium Potassium Chloride Carbon Dioxide Anion Gap BUN Creatinine Est GFR ( Amer) Est GFR (Non-Af Amer) Random Glucose Calcium Total Bilirubin Direct Bilirubin AST ALT Alkaline Phosphatase Total Protein Albumin Globulin Albumin/Globulin Ratio Hepatitis A IgM Ab Negative Hep Bs Antigen Negative Hep B Core IgM Ab Negative Hepatitis C Antibody Negative HIV 1&2 Antibody Screen Negative 06/27/18 11:38 WBC RBC Hgb Hct MCV MCH MCHC RDW Plt Count MPV Neut % (Auto) Lymph % (Auto) [place] % (Auto) Eos % (Auto) Baso % (Auto) Neut # (Auto) Lymph # (Auto) [place] # (Auto) Eos # (Auto) Baso # (Auto) Sodium 141 Potassium 4.2 Chloride 97 L Carbon Dioxide 31 H Anion Gap 16 BUN 12 Creatinine 1.0 Est GFR ( Amer) > 60 Est GFR (Non-Af Amer) > 60 Random Glucose 87 Calcium 9.9 Total Bilirubin 0.8 Direct Bilirubin 0.4 AST 209 H ALT 485 H Alkaline Phosphatase 61 Total Protein 8.3 Albumin 4.8 Globulin 3.6 Albumin/Globulin Ratio 1.3 Hepatitis A IgM Ab Hep Bs Antigen Hep B Core IgM Ab Hepatitis C Antibody HIV 1&2 Antibody Screen Attending/Attestation - Attestation I have personally seen and examined this patient.: Yes I have fully participated in the care of the patient.: Yes I have reviewed all pertinent clinical information: Yes Notes (Text): 06/27/18 14:37 patient seen at bedside earlier on Gi rounds. This is a 27 year old male with no PMH presenting for positive blood culture after ER visit 06/23/18 for subjective fever. Gi consulted for abnormal transminases. Denies nausea, vomiting, fecer, diarrhea, constipation or weight loss. Got a month ago and states had lot of alcohol. Took tylenol last week for fever and body ache. Denies drugs and hepatitis serologies are negative. No RUQ pain. No indication for antibiotics. Tolerating regular diet. Can be discharged with f/u of LFT in 3 months. Will sign off
--- NOTE | 2018-06-27 14:09 | CP.PCM.PN ---
Subjective - Date & Time of Evaluation Date of Evaluation: 06/27/18 Time of Evaluation: 14:09 Objective - Vital Signs/Intake and Output Vital Signs (last 24 hours): Temp Pulse Resp BP Pulse Ox 98.0 F 71 20 107/69 100 06/27/18 07:01 06/27/18 07:01 06/27/18 07:01 06/27/18 07:01 06/27/18 11:24 Intake and Output: 06/27/18 06/27/18 06:59 18:59 Intake Total 200 Balance 200 - Medications Medications: Current Medications Enoxaparin Sodium (Lovenox) 40 mg SC DAILY [facility] Last Admin: 06/27/18 09:27 Dose: Not Given Ciprofloxacin (Cipro 400mg/200ml Dsw) 400 mg in 200 mls @ 133 mls/hr IVPB Q12H [facility] PRN Reason: Protocol Last Admin: 06/27/18 11:37 Dose: 133 mls/hr Metronidazole (Flagyl) 500 mg in 100 mls @ 100 mls/hr IVPB Q8H [facility]OR[facility] ULIS PRN Reason: Protocol Last Admin: 06/27/18 13:33 Dose: Not Given Pantoprazole Sodium (Protonix Ec Tab) 40 mg PO DAILY [facility] Last Admin: 06/27/18 09:27 Dose: 40 mg - Labs Labs: 06/27/18 11:38 06/27/18 11:38 Assessment and Plan - Assessment and Plan (Free Text) Assessment: FOLLOW UP WITH DR Pamela STONE IN 1-2 WEEK IN HIS OFFICE ---CALL FOR APPOINTMENT ADDRESS YOUR LIVER FUNCTION TEST TO BE DONE AT YOUR VISIT\ CONTINUE HOME MEDICATION ACTIVITY TOLERATED CALL DR Pamela STONE OR GO TO THE EMERGENCY ROOM IF SYMPTOMS RETURN OR WORSENING
--- NOTE | 2018-06-27 22:42 | CP.PCM.PN ---
Subjective - Date & Time of Evaluation Date of Evaluation: 06/27/18 Objective - Vital Signs/Intake and Output Vital Signs (last 24 hours): Temp Pulse Resp BP Pulse Ox 98.0 F 71 20 107/69 100 06/27/18 07:01 06/27/18 07:01 06/27/18 07:01 06/27/18 07:01 06/27/18 11:24 - Labs Labs: 06/27/18 11:38 06/27/18 11:38 Assessment and Plan - Assessment and Plan (Free Text) Plan: we will call him back to er tomorrow am.. to check lft kandi same
== END 2018-06-27 14:31 | disposition home or self-care (01) ==
LOC: C.ER 19:05 → C.5S 23:35
PROVIDERS: ADMIT Internal Medicine Nephrology; ATTEND Internal Medicine Nephrology
DX: K52.9 Noninfective gastroenteritis and colitis, unspecified (principal); R78.81 Bacteremia; Z90.49 Acquired absence of other specified parts of digestive tract
CPT/HCPCS: 36415; 74177; 80053; 80074; 81001; 82248; 82803; 85025; 86703; 87040; 87045; 87086; 87177; 87209; 87337; 96360; 96365; 99285; G0378; J0744; J1650; J7030; Q9967